=== PATIENT | male | born 2000 | race Caucasian/White ===

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

== ENCOUNTER 2020-04-27 05:19 | Emergency (ER) | payer BC, OTHER ==
[~2020-04-27] VITALS: Ht 172.7 cm; Wt 68.0 kg
--- NOTE | 2020-04-27 10:30 | EKG ---
[facility] [address] [facility] [place], [place] [address] Signed Sinus rhythm with marked sinus arrhythmia Otherwise normal ECG No previous ECGs available Confirmed by DANITA LO DO ([id number]) on 04/27/2020 10:30:20 AM Electronically Signed By: DANITA LO DO 04/27/20 1030 PATIENT NAME: CYNDIMAREN Electrocardiogram DATE OF : [birth year] PHYSICIAN: DANITA LO DO REPORT #: [id number] REPORT IS CONFIDENTIAL AND NOT TO BE RELEASED WITHOUT AUTHORIZATION
== END 2020-04-27 07:15 | disposition home or self-care (01) ==
LOC: ED 05:19
DX: R00.2 Palpitations (principal)
CPT/HCPCS: 71045; 80053; 84484; 85025; 93005; 93010; 93225; 93226; 93227; 99285-25

== ENCOUNTER 2024-06-14 18:55 | Emergency (ER) | payer OTHER ==
[~2024-06-14] VITALS: Ht 172.7 cm; Wt 75.0 kg
[2024-06-14 20:46] LABS: BASOPHILS 0.2 % (0-2); EOSINOPHILS 0.3 % (0-6); HEMATOCRIT 42.9 % (35.0-50.0); HEMOGLOBIN 14.9 g/dL (12.0-18.0); LYMPHOCYTES 7.9 % (24-44); MCH 30.7 (27-36); MCHC 34.7 g/dl (30-36); MCV 88.5 fl (81-99); MONOCYTES 8.5 % (0-12); NEUTROPHILS 83.1 % (39-80); PLATELET COUNT 326 K/uL (140-440); RBC 4.85 M/ul (4.3-5.7); RDW 13.1 (10.5-15.0)
[2024-06-14] MEDS ORDERED: ALBUTEROL/IPRATROPIUM 3 ML NEB INH ONE (21:00)
[2024-06-14] MEDS ORDERED: SODIUM CHLORIDE 0.9% 1,000 ML IV ONE (21:00)
[2024-06-14] MEDS ORDERED: ondansetron HCL 4 MG/2 ML VIAL IV ONE (21:00)
[2024-06-14 21:03] LABS: ALBUMIN 4.5 g/dL (3.4-5.0); ALBUMIN/GLOBULIN RATIO 1.29 (1.1-2.4); ANION GAP 23.9 (7-21); BILIRUBIN, TOTAL 1.6 ng/dL (0.2-1.0); BUN/CREATININE RATIO 18.97 (6.0-28.6); CALCIUM 9.9 mg/dL (8.5-10.1); CREATININE, SERUM 1.37 mg/dL (0.70-1.30); MAGNESIUM 1.8 mg/dL (1.8-2.4); POTASSIUM 3.9 mmol/L (3.5-5.1)
[2024-06-14] MEDS ORDERED: LORazepam 2 MG/ML VIAL IV ONE (21:15)
[2024-06-14 21:23] LABS: INFLUENZA B NAA NEGATIVE (NEGATIVE); RESPIRATORY SYNCYTIAL VIR NAA NEGATIVE (NEGATIVE)
[2024-06-14 22:25] LABS: PH, VENOUS 7.444 (7.31-7.41)
[2024-06-14] MEDS ORDERED: ONDANSETRON ODT8 MG PO (22:34)
[2024-06-14] MEDS ORDERED: ONDANSETRON 4 MG HOME.PACK SL ONE (22:45)
[2024-06-14] MEDS ORDERED: INHALER, ASSIST DEVICES 1 EACH SPACER MISC ONE (22:45)
[2024-06-14] MEDS ORDERED: LORazepam 1 MG HOME.PACK PO ONE (22:45)
[2024-06-14] MEDS ORDERED: ALBUTEROL SULFATE 8 GM HOME.PACK INH ONE (22:45)
[2024-06-14 22:55] VITALS: BP 110/57
--- NOTE | 2024-06-15 08:08 | EKG ---
[facility] [address] [facility] [facility] [place] [address] Signed Normal sinus rhythm Normal ECG When compared with ECG of 27-APR-2020 05:30, T wave amplitude has decreased in Inferior leads QT has lengthened Confirmed by Darby Hernandez MD ([id number]) on 06/15/2024 8:08:21 AM Electronically Signed By: DARBY HERNANDEZ MD 06/15/24807 PATIENT NAME: MAREN HANNA Electrocardiogram DATE OF : [birth year] PHYSICIAN: DARBY HERNANDEZ MD REPORT #: [id number] REPORT IS CONFIDENTIAL AND NOT TO BE RELEASED WITHOUT AUTHORIZATION
== END 2024-06-14 22:57 | disposition home or self-care (01) ==
LOC: ED 18:55
PROVIDERS: Family Medicine
DX: R11.2 Nausea with vomiting, unspecified (principal); E87.3 Alkalosis; R06.4 Hyperventilation; E86.0 Dehydration; Z11.52 Encounter for screening for COVID-19
CPT/HCPCS: 36415; 71045; 80053; 82803; 83735; 85025; 87502; 93005; 93010; 94640; 96361; 96374; 96375; 96376; 99284-25; A9270; J2060; J2405; J7030; U0002